=== PATIENT | male | born 1955 | race Caucasian/White ===

== ENCOUNTER 2023-02-01 21:52 | Inpatient (IN) | payer BC, MEDICAID ==
[~2023-02-01] VITALS: Ht 167.6 cm; Wt 82.6 kg
[2023-02-01] MEDS ORDERED: SODIUM CHLORIDE 0.9% 1,000 ML IV ONE (23:15)
[2023-02-02 00:22] LABS: HEMATOCRIT. 31.8 % (42.0-52.0); HEMOGLOBIN. 11.1 g/dL (14.0-18.0); MEAN CORPUSCULAR HEMOGLOBIN 34.9 pg (28.0-32.0); MEAN CORPUSCULAR VOLUME 99.7 fL (80.0-94.0); MEAN PLATELET VOLUME 6.9 fl (7.4-10.4); PLATELET 160 x1000/uL (130-400); RED BLOOD CELL COUNT 3.19 mill/uL (4.7-6.1); RED CELL DISTRIBUTION WIDTH 17.1 % (11.6-14.6)
[2023-02-02 00:30] LABS: CHLORIDE 109 mEq/L (98-107)
[2023-02-02 00:35] LABS: CLARITY URINE CLEAR (CLEAR); COLOR URINE YELLOW (YELLOW); KETONES URINE TRACE (NEGATIVE); LEUKOCYTE ESTERASE URINE NEGATIVE (NEGATIVE); NITRITE URINE NEGATIVE (NEGATIVE); OCCULT BLOOD URINE NEGATIVE (NEGATIVE); PH URINE 6.5 (4.5-8.0); PROTEIN URINE NEGATIVE (NEGATIVE); SPECIFIC GRAVITY URINE 1.022 (1.005-1.030); UROBILINOGEN URINE 0.2 E.U./dL (0.2-1.0)
[2023-02-02 00:41] LABS: ETHANOL BLOOD < 10 mg/dL (-10)
[2023-02-02 00:53] LABS: *AMPHETAMINES SCREEN URINE NEGATIVE (NEGATIVE); *BARBITURATES SCREEN URINE NEGATIVE (NEGATIVE); *BENZODIAZEPINES SCREEN URINE NEGATIVE (NEGATIVE); *COCAINE SCREEN URINE NEGATIVE (NEGATIVE); CANNABINOID URINE SCREEN NEGATIVE (NEGATIVE); METHADONE URINE SCREEN NEGATIVE (NEGATIVE); OPIATES URINE SCREEN NEGATIVE (NEGATIVE); PHENCYCLIDINE URINE SCREEN NEGATIVE (NEGATIVE)
[2023-02-02 03:23] VITALS: BP 136/72
[2023-02-02 04:51] LABS: PLATELET ESTIMATE NORMAL
[2023-02-02 06:41] LABS: BASOPHILS % 0.4 % (0.0-2.0); EOSINOPHILS % 8.9 % (0.0-5.0); HEMATOCRIT. 32.3 % (42.0-52.0); HEMOGLOBIN. 11.3 g/dL (14.0-18.0); LYMPHOCYTES % 24.8 % (20.0-50.0); MEAN CORPUSCULAR HEMOGLOBIN 34.5 pg (28.0-32.0); MEAN CORPUSCULAR VOLUME 98.7 fL (80.0-94.0); MEAN PLATELET VOLUME 6.6 fl (7.4-10.4); MONOCYTES % 14.9 % (2.0-8.0); PLATELET 161 x1000/uL (130-400); RED BLOOD CELL COUNT 3.27 mill/uL (4.7-6.1); RED CELL DISTRIBUTION WIDTH 16.7 % (11.6-14.6)
[2023-02-02 06:46] LABS: CHLORIDE 112 mEq/L (98-107)
[2023-02-02 07:01] LABS: HDL CHOLESTEROL 50 mg/dL (40-59); LDL CHOLESTEROL 107 mg/dL (5-100)
[2023-02-02 08:13] VITALS: BP 128/73
[2023-02-02] MEDS ORDERED: LACO200T4 PO (11:55)
[2023-02-02] MEDS ORDERED: HEPA500015 SQ (11:55)
[2023-02-02] MEDS ORDERED: DIVA500T51 PO (11:55)
[2023-02-02] MEDS ORDERED: LEUC25TA PO (11:55)
[2023-02-02] MEDS ORDERED: HYDR-4134 PO (11:55)
[2023-02-02] MEDS ORDERED: LEVO75TA7 PO (11:55)
[2023-02-02] MEDS ORDERED: FAMO20TA8 PO (11:55)
[2023-02-02] MEDS ORDERED: ATOR-2 PO (11:55)
[2023-02-02] MEDS ORDERED: AMLO2.5T45 PO (11:55)
[2023-02-02] MEDS ORDERED: SULF1TAB44 PO (11:55)
[2023-02-02] MEDS ORDERED: ONDA4TAB11 PO (11:55)
[2023-02-02 12:00] VITALS: BP 129/80
[2023-02-02] MEDS ORDERED: HYDRALAZINE HCL 25MG TABLET PO SCH (12:30)
[2023-02-02] MEDS ORDERED: SODIUM CHLORIDE 0.9% 1,000 ML IV SCH (12:30)
[2023-02-02] MEDS ORDERED: ONDANSETRON HCL 4MG/2ML INJ IV PRN (12:30)
[2023-02-02] MEDS ORDERED: CLONIDINE 0.1MG TABLET PO PRN (12:30)
[2023-02-02] MEDS ORDERED: ACETAMINOPHEN 325MG TABLET PO PRN (12:30)
[2023-02-02] MEDS: LACOSAMIDE 100 MG TABLET PO SCH ×2 (13:00→21:48)
[2023-02-02] MEDS: PANTOPRAZOLE SODIUM 40 MG/VIAL IV SCH (13:00)
[2023-02-02] MEDS: LEVOTHYROXINE SODIUM 75MCG TABLET PO SCH (13:00)
[2023-02-02] MEDS: ENOXAPARIN 40MG/0.4ML SYR SUBCUT SCH (13:01)
[2023-02-02] MEDS: AMLODIPINE 2.5MG TABLET PO SCH (13:01)
[2023-02-02] MEDS ORDERED: LORAZEPAM 2MG/ML CPJ IV NR (14:00)
[2023-02-02] MEDS ORDERED: HALOPERIDOL LACTATE 5MG/ML VIAL IM NR (14:00)
[2023-02-02] MEDS ORDERED: DIPHENHYDRAMINE 50MG/ML VIAL IV NR (14:00)
[2023-02-02] MEDS: DIVALPROEX SODIUM 250MG ER TABLET PO SCH (14:36)
[2023-02-02 16:00] VITALS: BP 129/59
[2023-02-02 20:00] VITALS: BP 104/80
[2023-02-02] MEDS: ATORVASTATIN CALCIUM 40MG TABLET PO SCH (21:48)
[2023-02-02] MEDS: LORAZEPAM 2MG/ML CPJ IV PRN (21:49)
[2023-02-02 22:54] LABS: CREATINE KINASE MB FRACTION 1.2 ng/mL (0.5-3.6)
[2023-02-03 00:20] VITALS: BP 114/59
[2023-02-03 04:00] VITALS: BP 106/70
[2023-02-03 06:51] LABS: HEMATOCRIT. 33.4 % (42.0-52.0); HEMOGLOBIN. 11.7 g/dL (14.0-18.0); MEAN CORPUSCULAR HEMOGLOBIN 34.4 pg (28.0-32.0); MEAN CORPUSCULAR VOLUME 98.5 fL (80.0-94.0); MEAN PLATELET VOLUME 6.4 fl (7.4-10.4); PLATELET 194 x1000/uL (130-400); RED CELL DISTRIBUTION WIDTH 16.8 % (11.6-14.6)
[2023-02-03] MEDS: LEVOTHYROXINE SODIUM 75MCG TABLET PO SCH (06:52)
[2023-02-03 07:48] LABS: CHLORIDE 110 mEq/L (98-107)
[2023-02-03 08:00] VITALS: BP 130/61
[2023-02-03] MEDS: LACOSAMIDE 100 MG TABLET PO SCH ×2 (09:10→20:22)
[2023-02-03] MEDS: PANTOPRAZOLE SODIUM 40 MG/VIAL IV SCH (09:10)
[2023-02-03] MEDS: ENOXAPARIN 40MG/0.4ML SYR SUBCUT SCH (09:11)
[2023-02-03] MEDS: DIVALPROEX SODIUM 250MG ER TABLET PO SCH ×2 (09:11→16:49)
[2023-02-03] MEDS: AMLODIPINE 2.5MG TABLET PO SCH (09:11)
[2023-02-03 12:00] VITALS: BP 107/66
[2023-02-03 13:04] LABS: PLATELET ESTIMATE NORMAL
[2023-02-03 16:00] VITALS: BP 135/72
[2023-02-03] MEDS: QUETIAPINE FUMARATE 50MG TABLET PO SCH (16:48)
[2023-02-03 20:07] VITALS: BP 145/78
[2023-02-03] MEDS: ATORVASTATIN CALCIUM 40MG TABLET PO SCH (20:22)
[2023-02-04 00:17] VITALS: BP 119/84
[2023-02-04 04:13] VITALS: BP 118/67
[2023-02-04] MEDS: LEVOTHYROXINE SODIUM 75MCG TABLET PO SCH (06:49)
[2023-02-04 08:00] VITALS: BP 106/65
[2023-02-04] MEDS: AMLODIPINE 2.5MG TABLET PO SCH (08:41)
[2023-02-04] MEDS: QUETIAPINE FUMARATE 50MG TABLET PO SCH (08:47)
[2023-02-04] MEDS: LACOSAMIDE 100 MG TABLET PO SCH (08:47)
[2023-02-04] MEDS: DIVALPROEX SODIUM 250MG ER TABLET PO SCH (08:47)
[2023-02-04] MEDS: ENOXAPARIN 40MG/0.4ML SYR SUBCUT SCH (08:48)
[2023-02-04] MEDS ORDERED: FAMOTIDINE 20MG TABLET PO SCH (09:00)
[2023-02-04 12:00] VITALS: BP 110/62
[2023-02-04] MEDS: LORAZEPAM 2MG/ML CPJ IV PRN (13:39)
[2023-02-04 14:13] VITALS: BP 118/70
== END 2023-02-04 16:43 | DRG 72 ==
LOC: ER 21:52 → MICUSO 02-02 02:02 → EDBEDREQ 02-02 02:10 → EDBEDREQTM 02-02 02:10 → 3WST 02-02 03:37
PROVIDERS: ADMIT Internal Medicine; ATTEND Internal Medicine
DX: G93.41 Metabolic encephalopathy (principal); E03.9 Hypothyroidism, unspecified; I10 Essential (primary) hypertension; G40.909 Epilepsy, unspecified, not intractable, without status epilepticus; G83.9 Paralytic syndrome, unspecified; F29 Unspecified psychosis not due to a substance or known physiological condition; Z86.73 Personal history of transient ischemic attack (TIA), and cerebral infarction without residual deficits
CPT/HCPCS: 36415; 71045; 80048; 80053; 80061; 80305; 80307; 80320; 80329; 80339; 81003; 82140; 82550; 82553; 83735; 83880; 84443; 84484; 85025; 93005; 93306; 93970; 97162; 99285; C9113; J1200; J1630; J1650; J2060; J7030; G0480